=== PATIENT | female | born 1985 | race Caucasian/White ===

== ENCOUNTER 2019-05-10 10:20 | Emergency (ER) | payer BC ==
[2019-05-10 10:36] VITALS: BP 111/63
--- NOTE | 2019-05-10 10:54 | UC ---
Head Injury HPI - HPI Summary HPI Summary: CHIEF COMPLAINT and HPI: This is a 34-year-old female who 24 hours ago fell on wooden stairs injuring her occiput. There was no loss of consciousness. Since that time she has had no vomiting. She does report vague dizziness and discomfort when using the computer at work. She has no history of previous head trauma. She has no complaints of cervical injury. She has no motor disability subsequent to her head injury. she denies significant occiput discomfort or bleeding from this area. VITAL SIGNS & SaO2 REVIEWED. Within normal limits unless noted here. NURSES NOTE REVIEWED. Pt tripped and fell down stairs in the house yesterday around 11am. Pt hit back of head but denies LOC. Pt states has headaches and hard to concentrate after. - History Of Current Complaint Chief Complaint: UCHeadInjury Stated Complaint: HEAD INJURY Time Seen by Provider: 05/10/19 10:34 Hx Last Menstrual Period: 05/10/19 Pain Intensity: 2 - Allergies/Home Medications Allergies/Adverse Reactions: Allergies Allergy/AdvReac Type Severity Reaction Status Date / Time azithromycin Allergy See Comment Verified 05/10/19 10:29 cefaclor [From Ceclor] Allergy Rash Verified 05/10/19 10:29 Home Medications: Home Medications Sertraline* [Zoloft*] 12.5 mg PO DAILY 05/10/19 [History Confirmed 05/10/19] PMH/Surg Hx/FS Hx/Imm Hx - Additional Past Medical History Additional PMH: PAST MEDICAL HISTORY- CHRONIC and RECURRENT HEALTH PROBLEM LIST REVIEWED.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 VISIT HISTORY REVIEWED. MEDICATIONS & ALLERGIES REVIEWED. HYPERTENSION STATUS:no history of hypertension. FAMILY HISTORY: cardiovascular disease and cancer SOCIAL HISTORY: Smoker: Nonsmoker Home: lives with her family. 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 Previously Healthy: Yes - Surgical History Surgical History: Yes Surgery Procedure, Year, and Place: lipoma removal R shoulder - Social History Alcohol Use: Occasionally Substance Use Type: None Smoking Status (MU): Never Smoked Tobacco Review of Systems All Other Systems Reviewed And Are Negative: Yes ENT: Positive: Negative Respiratory: Positive: Negative Cardiovascular: Positive: Negative Gastrointestinal: Positive: Negative Genitourinary: Positive: Negative, Vaginal/Penile Itching Neurovascular: Positive: Negative Musculoskeletal: Positive: Negative Neurological: Positive: Other - headache dizziness and anxiety. Worse with using a computer. Is Patient Immunocompromised?: No Physical Exam - Summary Physical Exam Summary: Appearance: The patient is well-appearing, is in no pain or distress, and is well-nourished. Eyes: Conjunctiva are clear. Pupils are equal and reactive to light and accommodation. Extra ocular muscle movement is intact. ENT: The hearing is grossly normal, the pharynx is normal, and the TMs are normal. There is no muffled or hoarse voice. No stridor. Neck: The neck is supple and there is no lymphadenopathy. Respiratory: The chest is non-tender to palpation and without crepitus. The lungs are clear, there are normal breath sounds, and there is no respiratory distress. No wheezes, rales or rhonchi. Cardiovascular: Heart sounds reveal a regular rate and rhythm. There are no clicks, rubs or murmurs. There are no carotid bruits or thrills. Circulation is grossly intact. Abdomen: The abdomen is soft and nontender. There is no organomegaly. Bowel sounds are present and within normal limits. No point tenderness at McBurneys point. No CVA tenderness. Musculoskeletal: Strength is intact. The patient moves all extremities. Neurological: The patient is alert. Motor and sensory are examination grossly intact. Speech is normal. Psychological: The patient displays age appropriate behavior, and is conversant. GCS=15. Skin: Negative for rashes. summary: Neurologic examination is completely normal. Nexus criteria met; no neck tenderness to palpation. Triage Information Reviewed: Yes Vital Signs: Initial Vital Signs Temp 97.6 F 05/10/19 10:30 Pulse 57 05/10/19 10:30 Resp 18 05/10/19 10:30 BP 111/63 05/10/19 10:30 Pulse Ox 100 05/10/19 10:30 Head Injury Course/Dx - Course Course Of Treatment: This is a 34-year-old female who 24 hours ago fell on wooden stairs injuring her occiput. There was no loss of consciousness. Since that time she has had no vomiting. She does report vague dizziness and discomfort when using the computer at work. She has no history of previous head trauma. She has no complaints of cervical injury. She has no motor disability subsequent to her head injury. She denies significant occiput discomfort or bleeding from this area. physical examination, including neurologic examination and examination of the neck are completely normal. The patient does suffer from anxiety and motion sickness intermittently. My diagnosis is closed head trauma without loss of consciousness with possible mild postconcussive syndrome. I discussed with the patient the knee for appropriatefor cerebral rest as well as my recommendation that she call us or go to the emergency Department if she has any new or worsening symptoms. - Differential Dx/Diagnosis Differential Diagnosis/HQI/PQRI: Cerebral Contusion, Cervical Sprain Provider Diagnosis: Head trauma Discharge ED - Sign-Out/Discharge Documenting (check all that apply): Patient Departure All imaging exams completed and their final reports reviewed: No Studies - Discharge Plan Condition: Stable Disposition: HOME Patient Education Materials: Post Concussion Syndrome (ED) Referrals: No Primary Care Phys,NOPCP [Primary Care Provider] - Additional Instructions: WE DISCUSSED: PLEASE SEEK CARE AT THE EMERGENCY DEPARTMENT IF SYMPTOMS WORSEN OR IF NEW SYMPTOMS DEVELOP. FOLLOW UP WITH YOUR PRIMARY CARE PHYSICIAN IF CONDITION CONTINUES BEYOND 3 DAYS WITHOUT IMPROVEMENT. YOUR DIAGNOSIS IS:, possible mild concussion with postconcussive syndrome YOUR PRESCRIPTION RECOMMENDATION IS:. No medications OTHER INSTRUCTIONS:. Recheck at any time for increased symptoms. See the attached information. FOR PAIN AND/OR SLEEP: For pain: Ibuprofen (Motrin and other brand names) 400-600mg PLUS acetaminophen (Tylenol and other brand names) 500mg - 1000mg every 8 hours. - Billing Disposition and Condition Condition: STABLE Disposition: Home
== END 2019-05-10 11:22 | disposition home or self-care (01) ==
LOC: UCEAST 10:20
DX: S09.90XA Unspecified injury of head, initial encounter (principal); F41.9 Anxiety disorder, unspecified; Z88.1 Allergy status to other antibiotic agents; Z79.899 Other long term (current) drug therapy; W10.9XXA Fall (on) (from) unspecified stairs and steps, initial encounter; Y92.9 Unspecified place or not applicable
CPT/HCPCS: 99211; G0463